=== PATIENT | male | born 1985 | race Caucasian/White ===

== ENCOUNTER → 2019-06-07 | Outpatient (CLI) | payer OTHER ==
[~2019-06-07] MED LIST: GASTROGRAFIN SOLUTION 30ML (Q9963) As Ordered ONE; ISOVUE-370 76% 100ML VIAL (Q9967) As Ordered ONE
--- NOTE | 2019-06-07 16:45 | REP ---
Clinical: Testicular neoplasm. Technique: Axial contrast enhanced images from the thoracic inlet to the upper abdomen using 100 ml Isovue 370 intravenous contrast material with coronal and sagittal re-formations. Comparison: None. Findings: Bilateral lung blackmon are well-aerated and clear. No consolidation, significant nodule, or mass lesion. No pleural effusion. No pneumothorax. Tracheobronchial tree is patent. No adenopathy. The mediastinum demonstrates normal thoracic aorta, pulmonary vasculature and heart/pericardium. Surrounding musculoskeletal structures are intact without focal abnormality. Impression: Normal contrast enhanced chest CT. No evidence for metastatic disease or acute process. Electronically Signed by Marcello Estrada MD 06/07/2019 04:37 P
--- NOTE | 2019-06-07 17:08 | REP ---
Clinical: Testicular neoplasm. Technique: Axial contrast enhanced images from the lung bases to the pubic symphysis using oral (per protocol) and 100 ml Isovue 370 intravenous contrast material with coronal and sagittal re-formations as well as delayed images of the abdomen. Findings: Liver, spleen, pancreas, gallbladder, bilateral adrenal glands and kidneys are normal. The enteric system is without obstruction or acute inflammatory process. Normal terminal ileum and appendix identified in the right lower quadrant. Few scattered colonic diverticula noted without acute diverticulitis. Pelvis demonstrates collapsed normal bladder and age appropriate prostate/seminal vesicles. No pelvic fluid or ascites. No pelvic, intraperitoneal or retroperitoneal adenopathy. No free air. Abdominal aorta and vasculature normal. Musculoskeletal structures are intact without focal osseous abnormality. Impression: No acute abdominopelvic pathology appreciated. No evidence for metastatic disease or malignancy. No ascites, adenopathy, or focal inflammatory stranding. Electronically Signed by Marcello Estrada MD 06/07/2019 04:59 P
== END ==
LOC: M RAD 14:44
DX: C62.12 Malignant neoplasm of descended left testis (principal)
CPT/HCPCS: 71260; 74177; Q9963; Q9967